=== PATIENT | male | born 1965 | race Two or more races ===

== ENCOUNTER 2019-11-15 07:30 | Emergency (ER) | payer MEDICAID ==
[~2019-11-15] VITALS: Ht 165.1 cm; Wt 80.0 kg
[2019-11-15] MEDS ORDERED: KETOROLAC 30MG/ML VIAL IM ONE (08:30)
[2019-11-15 08:41] VITALS: BP 150/93
[2019-11-15 10:00] LABS: CLARITY URINE CLEAR (CLEAR); COLOR URINE YELLOW (YELLOW); KETONES URINE NEGATIVE (NEGATIVE); LEUKOCYTE ESTERASE URINE NEGATIVE (NEGATIVE); NITRITE URINE NEGATIVE (NEGATIVE); OCCULT BLOOD URINE NEGATIVE (NEGATIVE); PH URINE 5.5 (4.5-8.0); PROTEIN URINE NEGATIVE (NEGATIVE); SPECIFIC GRAVITY URINE 1.016 (1.005-1.030); UROBILINOGEN URINE 0.2 E.U./dL (0.2-1.0)
== END 2019-11-15 10:32 | disposition home or self-care (01) ==
LOC: ER 07:30
DX: M79.652 Pain in left thigh (principal); Z98.890 Other specified postprocedural states
CPT/HCPCS: 72192; 81003; 96372; 99284; J1885

== ENCOUNTER 2020-02-16 09:01 | Emergency (ER) | payer MEDICAID ==
[~2020-02-16] VITALS: Ht 160 cm; Wt 90.0 kg
[2020-02-16] MEDS ORDERED: ACETAMINOPHEN WITH CODEINE 300/30MG TABLET PO ONE (10:15)
[2020-02-16 11:18] VITALS: BP 130/80
== END 2020-02-16 11:23 | disposition home or self-care (01) ==
LOC: ER 09:01
DX: M16.12 Unilateral primary osteoarthritis, left hip (principal); Z98.890 Other specified postprocedural states
CPT/HCPCS: 73502; 99283